=== PATIENT | female | born 2000 | race African-American/Black ===

== ENCOUNTER 2023-08-09 00:58 | Inpatient (IN) | payer MEDICAID ==
[~2023-08-09] VITALS: Ht 167.6 cm; Wt 75.9 kg
[2023-08-09] VITALS (38 sets, daily range): BP systolic 83–120; BP diastolic 5–74; PULSE 55–83; TEMP 97.2–98.1
--- NOTE | 2023-08-09 01:00 | NUR ---
G2L1. 39.1. Ambulatory to LDR 5 with signficant other. Clean gown on. EFM and TOCO explained and applied. Pt states she has been mague for the past couple hours and reports contractions about every 3 mins apart. Denies leaking of fluids or vaginal bleeding. Reports good movement. Plan of care explained. Pt requesting epidural. 0126: called and updated on pt's status. Admit orders received. See physican notification. 0143: Tyron LOSS PREVENTION AND SAFETY MANAGER notified. 0145: IV started and labs obtained via IV site. LR bolus infusing without difficulty and Jaya started. 0205: Tyron JIMENES at bedside for epidural placement. Pt repositioned to edge of bed for procedure. Pulse ox applied. Difficulty tracing FHR due to maternal position. 0209: Single shot administered by JALIL Ackerman. See anesthesia records. 0213: Pt repositioned in bed to wedged left position. Plan of care and safety precautions explained to pt and significant other who verbalize their understanding. Call light within reach.
[2023-08-09] MEDS ORDERED: PRENATAL MVI PO (01:18)
[2023-08-09] MEDS ORDERED: NATURAL IRON65 MG PO (01:18)
[2023-08-09 02:00] LABS: BASO % 0.1 % (0.0-2.0); EOS % 0.2 % (0.0-4.0); GRAN % 66.7 % (42.2-75.2); HEMOGLOBIN 12.1 g/dl (12.5-16.0); LYMPH # 2.2 K/mm3 (1.2-3.4); LYMPH % 23.9 % (20.0-51.0); MEAN CELL VOLUME 88 fl (80.0-100.0); MEAN CORPUSCULAR HEMOGLOBIN 31 pg (27-31); MEAN CORPUSCULAR HGB CONC 35 g/dl (33.0-37.0); MEAN PLATELET VOLUME 9.6 fl (7.4-10.4); MONO # 0.8 K/mm3 (0.1-0.6); MONO % 8.7 % (1.7-9.3); PLATELET COUNT 174 K/mm3 (130-400); REDCELL DISTRIBUTION WIDTH-CV 12.7 % (11.5-14.5)
[2023-08-09 02:04] LABS: HEMATOCRIT 34.2 % (37.0-47.0)
--- NOTE | 2023-08-09 03:20 | NUR ---
Pt continuing to breath through contractions. Tyron RECRUITING SCHEDULER at bedside to replaced epidural. First epidural catheter removed by Tyron JIMENES. 0325: Single shot administered by Tyron JIMENES. See anesthesia records. 0329: Pt repositoned to wedged left position and plan of care explained.
--- NOTE | 2023-08-09 05:30 | NUR ---
at nurses station and reviews FHR strip. Update on pt's status given.
--- NOTE | 2023-08-09 08:32 | NUR ---
DR. MAIN IN-HOUSE, AWARE OF PATIENT STATUS, SET UP TO PUSH. OF VIABLE MALE TO DR. MAIN OVER INTACT PERINIUM. PIT SET TO BOLUS, IV INFUSING WITHOUT DIFFICULTY, NO REDNESS OR EDEMA NOTED. REBECA CARE PROVIDED, FUNDUS FIRM U/1, SCANT BLEEDING, ICE PACK APPLIED. BABY SKIN TO SKIN.
[2023-08-10 03:50] VITALS: BP 105/67; PULSE 62; TEMP 97.7
[2023-08-10 08:15] VITALS: BP 106/66; PULSE 63; TEMP 97.8
[2023-08-10] MEDS ORDERED: IBU600 MG PO (11:17)
== END 2023-08-10 11:50 | disposition home or self-care (01) | DRG 807 ==
LOC: LDRO 00:58 → LDR 01:30 → OB 15:28
PROVIDERS: ADMIT Student in an Organized Health Care Education/Training Program
PROC: 10E0XZZ Delivery of Products of Conception, External Approach (ICD-10-PCS; principal; 2023-08-09)
DX: O99.824 Streptococcus B carrier state complicating childbirth (principal); Z37.0 Single live birth; Z3A.39 39 weeks gestation of pregnancy; O99.02 Anemia complicating childbirth; D64.9 Anemia, unspecified; O76 Abnormality in fetal heart rate and rhythm complicating labor and delivery; Z23 Encounter for immunization
CPT/HCPCS: J2405; J2540; J2795; J7120